=== PATIENT | female | born 1985 | race Caucasian/White ===

== ENCOUNTER 2017-11-18 23:03 | Emergency (ER) | payer SELFPAY ==
[~2017-11-18] VITALS: Ht 157.5 cm; Wt 85.9 kg
[2017-11-19 00:22] LABS: INFLUENZA TYPE A NEGATIVE FOR TYPE A (NEGATIVE); INFLUENZA TYPE B NEGATIVE FOR TYPE B (NEGATIVE)
[2017-11-19 01:24] VITALS: BP 132/89
[2017-11-19] MEDS ORDERED: IBUPROFEN 600 MG TABLET PO ONE (02:00)
[2017-11-19] MEDS ORDERED: GuaiFENesin/D-METHORPHAN [SUGAR-FREE] 200-20MG/10 ML SYRUP UDCUP PO ONE (02:00)
[2017-11-19] MEDS ORDERED: ACETAMINOPHEN/CODEINE 300-30 MG TABLET PO ONE (02:00)
== END 2017-11-19 02:51 | disposition home or self-care (01) ==
LOC: EDUNIT# 23:03 → EMS 23:04
DX: S93.491A Sprain of other ligament of right ankle, initial encounter (principal); J04.0 Acute laryngitis; J06.9 Acute upper respiratory infection, unspecified; G43.909 Migraine, unspecified, not intractable, without status migrainosus; Z98.890 Other specified postprocedural states; W22.8XXA Striking against or struck by other objects, initial encounter; Y93.89 Activity, other specified; Y92.89 Other specified places as the place of occurrence of the external cause; Y99.8 Other external cause status
CPT/HCPCS: 87804; 99285